=== PATIENT | female | born 2000 | race Caucasian/White ===

== ENCOUNTER 2024-08-30 16:03 | Emergency (ER) | payer MEDICAID, SELFPAY ==
[2024-08-30 16:04] VITALS: BMI 35.2
--- NOTE | 2024-08-30 16:37 | XR_ITS ---
Examination: Complete OB ultrasound greater than 14 weeks Date and time of exam: August 30, 2024 1700 hours INDICATIONS: Mid abdominal and pelvic pain today Findings: Viable intrauterine single fetus with single amniotic sac presentation breech Cardiac motion 150 BPM Placenta anterior grade 1 Umbilical cord insertion seen Amniotic fluid volume adequate spine posterior Cervix 4.6 cm Ovaries obscured by bowel gas. Composite estimated gestational age based on BPD, head circumference, abdominal circumference, femur length is 16 weeks 1 day Estimated weight 151 g. Survey of intracranial anatomy, spinal anatomy, abdominal anatomy, four-chamber heart performed with no abnormalities identified. Impression: Viable intrauterine gestation breech presentation.
[2024-08-30 16:38] VITALS: BP 109/73; PULSE 74; RESP 18; TEMP 36.9; O2SAT 99
[2024-08-30 17:30] LABS: Collection Type, Urine Clean Catch
[2024-08-30 17:30] LABS: Basophils % (Auto) 0 % (0-2.5); Eosinophils % (Auto) 0 % (0-10); Hemoglobin 12.2 g/dL (12.0-16.0); Immature Granulocytes % (Auto) 0 % (0-0); Immature Granulocytes Auto 0.01 Thou/mm3 (0.00-0.00); Lymphocytes # (Auto) 1.6 Thou/mm3 (1.0-4.8); Lymphocytes % (Auto) 24 % (10-50); Mean Corpuscular HGB Conc 35.9 g/dl (31.0-37.0); Mean Corpuscular Hemoglobin 28.7 pg (25.0-35.0); Mean Corpuscular Volume 80 fL (80-100); Monocytes # (Auto) 0.3 Thou/mm3 (0.0-0.8); Monocytes % (Auto) 4 % (0-12); Neutrophils # (Auto) 4.6 Thou/mm3 (1.8-7.7); Neutrophils % (Auto) 71 % (37-80); Nucleated Red Blood Cell % 0 /100 WBC (0); Platelet Count 245 Thou/mm3 (140-440); RDW Standard Deviation 41.2 fL (36.4-46.3); Red Blood Count 4.25 Miln/mm3 (4.00-5.20); White Blood Count 6.5 Thou/mm3 (3.6-11.0)
[2024-08-30 17:46] LABS: Alanine Aminotransferase 23 U/L (10-49); Albumin, Serum 4.1 gm/dL (3.5-5.0); Albumin/Globulin Ratio 1.4 (1.2-2.2); Alkaline Phosphatase 47 U/L (46-116); Anion Gap 8 (7-16); Aspartate Amino Transferase 18 U/L (0-34); BUN/Creatinine Ratio 10 Ratio (12-20); Beta HCG,Quantitative > 1000 mIU/mL (<5.0); Bilirubin,Total 0.2 mg/dL (0.3-1.2); Blood Urea Nitrogen 7 mg/dL (9-23); Calcium 8.6 mg/dL (8.3-10.6); Calcium (Corrected) 8.6 mg/dL (8.5-10.1); Carbon Dioxide 22.9 mMol/L (20.0-31.0); Chloride 107 mMol/L (98-107); Creatinine (Component) 0.7 mg/dL (0.6-1.3); Estimated Creatinine Clearance 135.8 mL/min (>60); Globulin 2.9 gm/dL (2.3-3.5); Glucose 108 mg/dL (74-106); Osmolality,Calculated 274 (275-295); Potassium 3.6 mMol/L (3.4-5.1); Sodium 138 mMol/L (136-145); eGFR > 60 See Note
[2024-08-30 17:56] LABS: Bacteria,Urine Rare; Bilirubin,Urine Negative (Negative); Blood,Urine Negative (Negative); Color,Urine Yellow (Lt Yel-Yel); Glucose, Urine Negative (Negative); Ketones,Urine 1+ (Negative); Leukocyte Esterase,Urine Negative (Negative); Nitrite,Urine Negative (Negative); PH,Urine 6.5 (5.0-7.0); Protein,Urine Trace (Neg - Trace); RBC,Urine 21 /hpf (0-3); Specific Gravity,Urine 1.029 (1.001-1.035); Squamous Epithelial Cell,Urine 1 /hpf (0-5); Urobilinogen,Urine Negative mg/dL (0.0-1.0); WBC,Urine 2 /hpf (0-5)
[2024-08-30 18:00] LABS: Clarity,Urine Hazy (Clear/Hazy)
--- NOTE | 2024-08-30 18:26 | PD.EDABDPN ---
ED Abdominal Pain RME/HPI General Chief Complaint: Shortness of Breath/Dyspnea Stated complaint: SOB, ABD PAIN, 17 WKS Time seen by provider: 08/30/24 16:09 Arrival date/time: 08/30/24 16:03 This is a case of 24 year old female came in with periumbilcal pain and some shortness of breath no fever no chills no cough nor nasal congestion no vaginal bleeding nor spotting no vaginal discharge Patient is 17 weeks with regular OB check up patient verbalized she is stress no chest pain Limitations: no limitations Related Data Previous Rx's ?Medication ?Instructions ?Recorded atenolol 25 mg tablet 25 mg PO QAM #30 tabs 05/06/19 methimazole 5 mg tablet 5 mg PO TID #90 tabs 05/06/19 hydrocodone 7.5 mg-acetaminophen 1 tab PO QID PRN pain #12 tabs 05/20/20 325 mg tablet tamsulosin 0.4 mg capsule (Flomax) 0.4 mg PO QDAY #7 caps 05/20/20 diphenhydramine HCl 50 mg capsule 50 mg PO Q6H PRN allergic reaction 12/05/21 #20 caps famotidine 20 mg tablet (Pepcid) 20 mg PO BID #10 tabs 12/05/21 prednisone 10 mg tablet 30 mg (3 x 10 mg) PO BID #18 tabs 12/05/21 ibuprofen 800 mg tablet 800 mg PO TID PRN pain #30 tabs 12/11/23 Allergies Allergy/AdvReac Type Severity Reaction Status Date / Time No Known Allergies Allergy Verified 08/30/24 16:04 Review of Systems Review of Systems Systems Reviewed: All systems reviewed, normal except as documented Constitutional Constitutional: Reports system reviewed and no additional complaints, except as documented, Reports as per HPI, Denies chills and Denies fever(s) Cardiovascular Cardiovascular: Reports system reviewed and no additional complaints, except as documented, Reports as per HPI, Denies chest pain and Reports dyspnea Respiratory Respiratory: Reports system reviewed and no additional complaints, except as documented, Denies cough and Reports dyspnea Gastrointestinal Gastrointestinal: Reports system reviewed and no additional complaints, except as documented, Reports abdominal pain, Denies nausea and Denies vomiting Genitourinary Genitourinary: Denies abnormal vaginal bleeding, Denies dysuria and Denies hematuria Musculoskeletal Musculoskeletal: Reports system reviewed and no additional complaints, except as documented and Reports as per HPI Neurologic Neurologic: Reports system reviewed and no additional complaints, except as documented and Reports as per HPI Past Medical History Past Medical History NEUROLOGIC: Negative Neurological Disorders CARDIAC: Positive Cardiac Disorders and Hypertension; Negative Congestive Heart Failure RESPIRATORY: Negative Chronic Obstructive Pulmonary Disease (COPD) GASTROINTESTINAL: Negative Gastrointestinal Disorders GENITOURINARY: Negative Genitourinary Disorders or Renal Disease REPRODUCTIVE: Positive Previous Pregnancies MUSCULOSKELETAL: Negative Musculoskeletal Disorders ENDOCRINE: Positive Endocrine Disorders, Hyperthyroidism and Graves' Disease; Negative Diabetes Mellitus Type 1 or Diabetes Mellitus Type 2 HEMATOLOGIC: Negative Blood Disorders PSYCHO/SOCIAL: Positive Depression OTHER HISTORY: Negative Blood Transfusions Family History FAMILY HISTORY: Positive Family Cancer; Negative Family Psychiatric Problems, Family Respiratory Disorders, Family Cardiac Disorders, Family Gastrointestinal Problems, Family Surgery or Family Anesthesia Reaction Surgical History SURGICAL: Negative Section Social History SMOKING STATUS: Former smoker SECOND HAND EXPOSURE: Yes SUBSTANCE USE: does not use ED Exam General Limitations: Present no limitations General appearance: Present alert and in no apparent distress Head Head exam: Present atraumatic, normocephalic and normal inspection Eye Eye exam: Present normal appearance, PERRL and EOMI ENT ENT exam: Present normal exam, normal oropharynx and mucous membranes moist Neck Neck exam: Present normal inspection, full ROM and trachea midline Chest Chest inspection: Present normal inspection and symmetric chest wall rise; Absent tenderness Respiratory Respiratory exam: Present normal lung sounds bilaterally; Absent respiratory distress, wheezes, stridor, accessory muscle use or prolonged expiratory phase Cardiovascular Cardiovascular exam: Present regular rate, normal rhythm and normal heart sounds; Absent systolic murmur or diastolic murmur Abdominal Exam Abdominal exam: Present soft, normal bowel sounds and other (gravid uterus); Absent tenderness, guarding, rebound or rigidity Extremities Exam Extremities exam: Present normal inspection and full ROM Back Exam Back exam: Present normal inspection and full ROM Neurological Exam Neurological exam: Present alert, oriented X3 and CN II-XII intact Psychiatric Psychiatric exam: Present normal affect and normal mood Skin Skin exam: Present warm, dry, intact and normal color Course Quality Measures none Orders Category Date Time Status US OB >= 14 weeks Fetus Stat Exams 08/30/24 16:37 Completed ABO/RH Type Stat Lab 08/30/24 16:50 Results Beta HCG,Quantitative Stat Lab 08/30/24 16:50 Completed CBC Stat Lab 08/30/24 16:50 Completed Comprehensive Metabolic Panel Stat Lab 08/30/24 16:50 Completed UA [Urinalysis] Stat Lab 08/30/24 17:25 Completed Urine Culture Stat Lab 08/30/24 17:25 Received Vital Signs Vital signs: Vital Signs Temperature 98.5 F 08/30/24 16:38 Pulse Rate 74 08/30/24 16:38 Respiratory Rate 18 08/30/24 16:38 Blood Pressure 109/73 08/30/24 16:38 Pulse Oximetry (%) 99 08/30/24 16:38 Oxygen Delivery Method Room Air 08/30/24 16:38 Oxygen saturation 99% WNL on room air Abdominal Pain MDM MDM Narrative MDM Narrative:: This is a case of 24 year old female came in with periumbilcal pain and some shortness of breath no fever no chills no cough nor nasal congestion no vaginal bleeding nor spotting no vaginal discharge Patient is 17 weeks with regular OB check up patient verbalized she is stress no chest pain Physicial exam showed normal vital signs patient is not tacycardic not tacypneic blood pressure stable afebrile not hypoxic Physical exam patient is awake alert oriented not in distress nontoxic looking HEENT exam is normal lung sounds is clear no crackles no rales no retraction no stridor heart normal rate regular rhythm no murmur patient abdominal exam is benign nonsurgical no tenderness no guarding no rebound no rigidity no CVA tenderness no bladder distention or tenderness patient is slightly stress no suicidal no homicidel ideation test showed No leukocytosis no anemia kidney and liver function is normal no electrolyte imbalance urinalysis is normal ultrasound showed normal 16 weeks with a heartbeat 150 beta hCG is >1000 at this point I discussed with the patient that she needs to follow-up with her primary care physician and OB for reevaluation and for any vaginal bleeding or vaginal discharge or vaginal spotting she needs to return in the emergency room immediately or call 911 deep breathing exercises for stress and shortness of breath of breath was advised at this point x-ray was note done patient is lung sound is clear no signs and symptoms of cardiopulmonary pathology patient was disharged with comforatble conditionwith stable condition and pain fee. Walking stable Patient verbalized no further complain with the proposed management plan including the need to follow up with his/her primary care physician and and any specialist fif applicable. Discussed patient for any urgent condition or worsening sx He she needed to go to Emergency room of call 911 Patient is acknowledge the responsibility to follow up as instructed and to monitor his/her symptoms For any persistnce of the symtoms for more than 3-5 days retrun precaution advised Discussed the result of thetest and was given printed dsicahrge instruction Patient data External records reviewed:: [facility] previous records Clinical information provided by:: patient Social determinants that could affect healthcare access:: none Patient has the following chronic illnesses:: none How is presenting disease/condition affected by chronic disease/condition?: no chronic disease Evaluation data The following diagnostics were reviewed and interpreted by me:: lab results and radiology exam(s) Lab and/or radiology exams considered but not ordered:: Reviewed Interpretation Summary: Normal Medications / Prescriptions Medications or Prescriptions considered but not ordered:: None Medication administrations:: None Consultations Consultation(s) initiated? (list below): No Diagnosis Differential diagnosis abdominal pain: abdominal pain and other (threatened uti gallstone) Most likely diagnosis given after review of the tests above:: abdominal pain in Admission Indicated Admission indicated?: not indicated Explain why admission is indicated or not indicated:: not indicated Admission Request Was there a request for admission?: No Admission Attestation Admission request attestation: not indicated Disposition Plan Disposition Plan: Discharge Discharge Attestation Discharge Attestation: The patient and all family members were given an opportunity to ask questions and understood the discharge instructions. Discharge instructions specifically effects, indications for sooner follow up or return to the emergency department, and the expected course of current diagnosis. Patient condition: Stable Discharge Plan Plan Patient Disposition: HOME (Self Care) Patient condition on transfer: Stable Prescriptions/Referrals Prescriptions/Med Rec: No Action tamsulosin [Flomax] 0.4 mg capsule 0.4 mg PO QDAY Qty: 7 0RF hydrocodone-acetaminophen 7.5-325 mg tablet 1 tab PO QID MDD 4 tabs PRN (Reason: pain) Qty: 12 0RF prednisone 10 mg tablet 30 mg PO BID Qty: 18 0RF Rx Instructions: administer with food or milk diphenhydramine HCl 50 mg capsule 50 mg PO Q6H PRN (Reason: allergic reaction) Qty: 20 0RF famotidine [Pepcid] 20 mg tablet 20 mg PO BID Qty: 10 0RF atenolol 25 mg Tablet 25 mg PO QAM Qty: 30 0RF methimazole 5 mg Tablet 5 mg PO TID Qty: 90 0RF ibuprofen 800 mg tablet 800 mg PO TID PRN (Reason: pain) Qty: 30 0RF Referrals: Robert Leo MD [Primary Care Provider] - In 1 week Problem List Clinical Impression: Abdominal pain during , Dyspnea Patient/Caregiver Discharge Instructions Education Materials: Abdominal Pain, ED Shortness of Breath (Dyspnea) Additional Instructions: Follow-up with your primary care physician in 2 days and ffup with your obgyn for check up for and vaginal bleeding vaginal spotting or discharge fever nausea vomiting return to er imemdiately or call 911 increase water intake and continue youe prental check deep breathing exercise for stress advsied Print Language: Jordanian Stand Alone Forms: [employer] Award Info., Patient Portal Info Letter PA/SANDING MACHINE OPERATOR OR TENDER Supervising Physician PA/SANDING MACHINE OPERATOR OR TENDER Supervising Physician: dr naranjo
--- NOTE | 2024-08-30 19:17 | PC.NURSE ---
NO ANSWER AT ER LOBBY OR OUTSIDE ER.
--- NOTE | 2024-08-30 19:23 | PC.NURSE ---
NO ANSWER AT ER LOBBY OR OUTSIDE ER.
--- NOTE | 2024-08-30 20:03 | PC.NURSE ---
NO ANSWER AT ER LOBBY OR OUTSIDE ER TO RE EVALUATED.
== END 2024-08-30 20:06 | disposition home or self-care (01) ==
PROVIDERS: Nurse Practitioner Primary Care; Emergency Provider Emergency Medicine; PCP Family Medicine
DX: O26.892 Other specified pregnancy related conditions, second trimester (principal); Z3A.17 17 weeks gestation of pregnancy; R10.33 Periumbilical pain; R06.02 Shortness of breath
CPT/HCPCS: 36415; 76805; 80053; 81001; 84702; 85025; 86900; 86901; 87077; 87086; 87186; 99284

== ENCOUNTER 2024-10-14 08:56 | Observation (INO) | payer MEDICAID, SELFPAY ==
[2024-10-14] VITALS (34 sets, daily range): BP systolic 98–107; BP diastolic 61–75; PULSE 60–104; RESP 18–97; TEMP 36.4; O2SAT 93–100; BMI 34.9
--- NOTE | 2024-10-14 09:17 | XR_ITS ---
Examination: Retroperitoneal ultrasound, complete Technique: Multiple high resolution grayscale images of the retroperitoneum obtained, including kidneys and bladder. Exam date and time:October 14, 2024, 0931 hrs. Indications: Right-sided flank pain beginning 3 days ago Findings: Right kidney 10.7 cm renal cortex 1.9 cm Left kidney 11.3 cm renal cortex 1.8 cm No hydronephrosis Contracted urinary bladder Impression: No renal calculi or hydronephrosis
[2024-10-14] MEDS: DIPHENOXYLATE/ATROP SULF 1 TAB PO (10:28)
[2024-10-14] MEDS: ACETAMINOPHEN 500 MG TABLET 1000 MG PO (10:28)
[2024-10-14 10:56] LABS: Collection Type, Urine Clean Catch; RBC,Urine 0 /hpf (0-3); WBC,Urine 0 /hpf (0-5)
[2024-10-14 11:16] LABS: Bacteria,Urine 1+; Bilirubin,Urine Negative (Negative); Blood,Urine Negative (Negative); Clarity,Urine Clear (Clear/Hazy); Color,Urine Lt-Yellow (Lt Yel-Yel); Glucose, Urine Negative (Negative); Ketones,Urine Trace (Negative); Leukocyte Esterase,Urine Negative (Negative); Nitrite,Urine Negative (Negative); PH,Urine 7.0 (5.0-7.0); Protein,Urine Negative (Neg - Trace); Specific Gravity,Urine 1.008 (1.001-1.035); Squamous Epithelial Cell,Urine 9 /hpf (0-5); Urobilinogen,Urine Negative mg/dL (0.0-1.0)
[2024-10-14 11:24] LABS: Fetal Fibronectin Negative (Negative)
[2024-10-14 11:25] LABS: FFN Specimen Descripton Clr Colrless Aqueous
== END 2024-10-14 11:55 | disposition home or self-care (01) ==
PROVIDERS: Admitting Provider Specialist; Visit Provider Specialist
DX: O26.892 Other specified pregnancy related conditions, second trimester (principal); Z3A.23 23 weeks gestation of pregnancy; R10.9 Unspecified abdominal pain
CPT/HCPCS: 59899; 76770; 81001; 82731; A9270

== ENCOUNTER 2024-12-28 08:38 | Observation (INO) | payer MEDICAID, SELFPAY ==
[2024-12-28 08:40] VITALS: BP 106/72; PULSE 84; RESP 100; RESP 18; TEMP 36.7; BMI 36.7
[2024-12-28 08:47] VITALS: BP 106/72; PULSE 101; PULSE 94; O2SAT 99
[2024-12-28 08:52] VITALS: PULSE 108; O2SAT 99
[2024-12-28 08:57] VITALS: PULSE 78; O2SAT 99
[2024-12-28 09:02] VITALS: PULSE 93; O2SAT 97
== END 2024-12-28 09:10 | disposition home or self-care (01) ==
PROVIDERS: Admitting Provider Specialist; Visit Provider Specialist
DX: O26.893 Other specified pregnancy related conditions, third trimester (principal); Z3A.34 34 weeks gestation of pregnancy; R42 Dizziness and giddiness
CPT/HCPCS: 59025; 59899

== ENCOUNTER 2025-01-22 19:53 | Observation (INO) | payer MEDICAID, SELFPAY ==
[2025-01-22] VITALS (9 sets, daily range): BP systolic 105–131; BP diastolic 62–91; PULSE 93–112; RESP 18–98; TEMP 36.9; O2SAT 92–98; BMI 37.3
== END 2025-01-22 20:47 | disposition home or self-care (01) ==
PROVIDERS: Admitting Provider Specialist; Visit Provider Specialist
DX: O47.1 False labor at or after 37 completed weeks of gestation (principal); O46.93 Antepartum hemorrhage, unspecified, third trimester; Z3A.38 38 weeks gestation of pregnancy
CPT/HCPCS: 59025; 59899

== ENCOUNTER 2025-01-28 08:58 | Observation (INO) | payer MEDICAID, SELFPAY ==
[2025-01-28] VITALS (15 sets, daily range): BP systolic 110–112; BP diastolic 73–76; PULSE 69–114; RESP 16–96; TEMP 37; O2SAT 97–100; BMI 37.7
== END 2025-01-28 10:15 | disposition home or self-care (01) ==
PROVIDERS: Admitting Provider Specialist; Visit Provider Specialist
DX: O47.1 False labor at or after 37 completed weeks of gestation (principal); Z3A.38 38 weeks gestation of pregnancy
CPT/HCPCS: 59025; 59899

== ENCOUNTER 2025-01-30 03:33 | Observation (INO) | payer MEDICAID, SELFPAY ==
--- NOTE | 2025-01-28 07:33 | PC.NURSE ---
PT CALLED ASKING FOR BED AVAILABILITY FOR IOL, INFORMED OF NO BEDS AT THIS TIME, WILL CALL ONCE BED BECOMES AVAILABLE, EDUCATED ON KICK COUNT AND LABOR PRECAUTIONS, PT VERBALIZED UNDERSTANDING
[2025-01-30] VITALS (29 sets, daily range): BP systolic 97–126; BP diastolic 52–82; PULSE 65–111; RESP 16–19; TEMP 36.4–37.1; O2SAT 96–100; BMI 36.9
[2025-01-30 04:30] LABS: Basophils # (Auto) 0.0 Thou/mm3 (0.0-0.2); Basophils % (Auto) 0 % (0-2.5); Eosinophils # (Auto) 0.0 Thou/mm3 (0.0-0.5); Eosinophils % (Auto) 0 % (0-10); Hematocrit 34.0 % (36.0-46.0); Hemoglobin 11.6 g/dL (12.0-16.0); Immature Granulocytes Auto 0.02 Thou/mm3 (0.00-0.00); Lymphocytes # (Auto) 1.9 Thou/mm3 (1.0-4.8); Lymphocytes % (Auto) 31 % (10-50); Mean Corpuscular HGB Conc 34.1 g/dl (31.0-37.0); Mean Corpuscular Hemoglobin 28.6 pg (25.0-35.0); Mean Corpuscular Volume 84 fL (80-100); Monocytes # (Auto) 0.3 Thou/mm3 (0.0-0.8); Monocytes % (Auto) 6 % (0-12); Neutrophils # (Auto) 3.9 Thou/mm3 (1.8-7.7); Neutrophils % (Auto) 63 % (37-80); Nucleated Red Blood Cell # 0.00 Thou/mm3 (0.00-0.00); Nucleated Red Blood Cell % 0 /100 WBC (0); Platelet Count 243 Thou/mm3 (140-440); RDW Standard Deviation 42.6 fL (36.4-46.3); Red Blood Count 4.06 Miln/mm3 (4.00-5.20); White Blood Count 6.1 Thou/mm3 (3.6-11.0)
--- NOTE | 2025-01-30 05:05 | XR_ITS ---
EXAMINATION: age Limited TECHNIQUE: Limited transabdominal sonographic images pelvis Date and time: January 30, 2025, 0531 hours INDICATIONS: Labor induction today, unknown presentation FINDINGS: Viable intrauterine gestation in vertex presentation spine maternal right Cardiac motion 125 bpm IMPRESSION: Viable intrauterine gestation in vertex presentation
[2025-01-30] MEDS: RINGERS LACTATED 1000 ML 1,000 ML 100 ML IV (05:41)
[2025-01-30] MEDS: LEVOTHYROXINE SODIUM 88 MCG TABLET PO (06:25)
[2025-01-30] MEDS: LEVOTHYROXINE SODIUM 100 MCG TABLET 200 MCG PO (06:25)
[2025-01-30 07:03] LABS: Syphilis Reactive (Nonreactive)
--- NOTE | 2025-01-30 07:03 | PD.LDHP ---
Documentation for date of: 01/30/25 OB Labor/Induct. HPI History of Present Illness : 2 Term pregnancies: 1 pregnancies: 0 Living children: 0 History of Abortions: Spontaneous and Elective: 0 History of sections: No History of : No Date of last menstrual period: 05/01/24 KIRSTEN: 02/05/25 Gestational age based on last menstrual period: 39 History of present illness: H and P dictated on STAT line # 9 in Nuance: [id number]. Labs Labs: Positive: Rubella Titre, Negative: RPR, Hepatitis B, HIV, Chlamydia, Gonorrhea and Group Beta Strep and Unknown: Herpes Type 1, Herpes Type 2 and Covid-19 Past Medical History Surgical History SURGICAL: Negative Section Meds Home Medications and Allergies Home Medications ?Medication ?Instructions ?Recorded ?Confirmed ?Type levothyroxine 200 mcg tablet 200 mcg PO QDAY 10/14/24 01/30/25 History aspirin 81 mg tablet,delayed 81 mg PO DAILY 12/28/24 01/30/25 History release levothyroxine 88 mcg tablet 88 mcg PO DAILY 12/28/24 01/30/25 History vits no.130-ferrous fum 1 tab PO DAILY 12/28/24 01/30/25 History 27 mg iron-folic acid 800 mcg tablet ( Vitamin) ferrous sulfate 325 mg (65 mg 325 mg PO QDAY 01/28/25 01/30/25 History iron) tablet Allergies Allergy/AdvReac Type Severity Reaction Status Date / Time No Known Allergies Allergy Verified 01/30/25 04:09 OB Exam Physical Exam Vital signs: Temp Pulse Resp BP 97.5 F 78 19 119/68 01/30/25 03:38 01/30/25 06:43 01/30/25 03:38 01/30/25 06:43 OB Results Labs 01/30/25 04:02 Labs: Short CBC 01/30/25 Range/Units 04:02 WBC 6.1 (3.6-11.0) Thou/mm3 Hgb 11.6 L (12.0-16.0) g/dL Hct 34.0 L (36.0-46.0) % Plt Count 243 (140-440) Thou/mm3
[2025-01-30 07:04] LABS: MHATP/TP-PA* See Sep Rpt
--- NOTE | 2025-01-30 07:30 | PD.LDPN ---
Documentation for date of: 01/30/25 OB Labor Progress Note Pain Control Comments: None needed Pelvic Exam Dilation (cm): 1 Effacement (%): Thick station: -4 Amniotic membrane status: Intact Comments: Per RN exam Cephalic by ultrasound Contractions Monitor mode: External Contraction frequency: Rare Contraction intensity: Mild Status status: Category l Assessment and Plan Comments: Cervidil cervical ripening History of Present Illness HPI H and P dictated on STAT line # 9 in Nuance: [id number].
--- NOTE | 2025-01-30 08:02 | ESHP_ITS ---
RE: SEPIDEH SAXENA : 2000 DATE OF ADMISSION: 01/29/2025 This is a 24-year-old 2, para 1-0-0-1 with due date of 02/05 with intrauterine at 39 weeks and 6 days on 01/29, who presents for induction of labor for 2-vessel umbilical cord and uncontrolled hypothyroidism. The patient has had serial ultrasounds with maternal medicine. The most recent ultrasound on 01/02 showed overall growth at the 20th percentile. Her was complicated by the threat of labor, for which she stopped working on 10/11/2024. Around 10/14, she had flank pain which resulted in hospital evaluation where a renal ultrasound was negative as well as a UA and a fibronectin. The patient has been on levothyroxine throughout her pregnancies and in an attempt to control her hypothyroidism, she has had subsequent increased doses due to uncontrolled hypothyroidism. Her current dose is 288 mcg of levothyroxine daily. The patient has a history of treatment for syphilis in 2021. Her RPR on 08/30/2024 was 121 consistent with her serofast state. However, her repeat RPR on 11/17/2024 was nonreactive. Maternal medicine ultrasound confirmed a single umbilical artery. The patient has been undergoing antepartum testing which has been reassuring. ALLERGIES: NO KNOWN DRUG ALLERGIES. MEDICATIONS: 1. multivitamin 1 p.o. daily. 2. Ferrous sulfate 325 mg 1 p.o. b.i.d. 3. Levothyroxine 288 mcg 1 p.o. daily. 4. Aspirin 81 mg 1 p.o. daily. SOCIAL HISTORY: She is single. She denies any alcohol, drug use or smoking. FAMILY HISTORY: Breast cancer and colon cancer. OBSTETRIC HISTORY: In 02/2019, 39-week normal vaginal delivery, 7-pound male, complicated by thyroid disorder. PAST SURGICAL HISTORY: Denies. PAST MEDICAL HISTORY: Syphilis treated 2021, hypothyroidism, iron deficiency anemia. REVIEW OF SYSTEMS: She denies any chest pain, palpitations, cough, fever, shortness of breath or lower extremity pain. She denies any headache, change in vision or right upper quadrant pain. PHYSICAL EXAMINATION: VITAL SIGNS: Blood pressure 130/79, heart rate 88, respirations 18, temperature is 98.6. HEENT: Oropharynx and sclerae are clear. LUNGS: Clear to auscultation bilaterally. HEART: Regular rate and rhythm. ABDOMEN: No scars noted. PELVIC: See RN notes. EXTREMITIES: Nontender. SKIN: No gross rashes or lesions. NEUROLOGIC: No focal deficit. ASSESSMENT AND PLAN: Intrauterine at 39 weeks and 0 days, single umbilical artery, hypothyroidism uncontrolled. PLAN: Induction of labor. Anticipate spontaneous vaginal delivery. Informed consent was obtained. The patient was made aware of the risks, complications, alternatives and benefits of operative vaginal delivery and delivery and agrees with these modes of delivery if indicated. DT: 08:21:38 TT: 08:44:00 Ref: [id number] - TID: [id number]
--- NOTE | 2025-01-30 10:15 | CHAP ---
Patient was visited by the Spiritual Care Volunteer who prayed for her. (Volunteer was on he floor from c 9:30-10:15)
[2025-01-30 10:20] LABS: Amphetamine/Metham Scrn,Ur OB Negative (Negative); Benzoylecgonine Screen, Ur OB Negative (Negative); Opiate Screen,Urine OB Negative (Negative); THC Screen,Urine OB Negative (Negative)
--- NOTE | 2025-01-31 03:42 | PD.LDPN ---
Documentation for date of: 01/31/25 OB Labor Progress Note Pelvic Exam Dilation (cm): 1.5 Effacement (%): thick station: -4 Amniotic membrane status: Intact Contractions Monitor mode: External Contraction frequency: 2-4 Contraction intensity: Mild Status status: Category l Assessment and Plan Comments: Cervical ripening ongoing History of Present Illness HPI H and P dictated on STAT line # 9 in Nuance: [id number].
[2025-01-31] MEDS: LEVOTHYROXINE SODIUM 100 MCG TABLET 200 MCG PO (05:57)
[2025-01-31] MEDS: LEVOTHYROXINE SODIUM 88 MCG TABLET PO (05:57)
[2025-01-31 07:05] VITALS: RESP 16; TEMP 36.4
[2025-01-31 07:07] VITALS: BP 110/74; PULSE 62
[2025-01-31 10:33] VITALS: BP 110/75; PULSE 80
[2025-01-31 12:04] VITALS: BP 118/73; PULSE 74
[2025-01-31 16:21] VITALS: BP 109/64; PULSE 70
[2025-01-31 19:17] VITALS: BP 123/73; PULSE 73; TEMP 36.6
[2025-02-01 00:05] VITALS: BP 108/59; PULSE 69; TEMP 36.6
[2025-02-01 04:38] VITALS: BP 95/51; PULSE 67; TEMP 36.7
[2025-02-01] MEDS: LEVOTHYROXINE SODIUM 100 MCG TABLET 200 MCG PO (06:17)
[2025-02-01] MEDS: LEVOTHYROXINE SODIUM 88 MCG TABLET PO (06:18)
--- NOTE | 2025-02-01 07:20 | PD.LDDS ---
DS: Providers Provider Date of admission: 01/30/25 03:33 Primary care physician: Physician No Primary/Family Admitting Provider: Seferino Lopez MD Attending Provider on Admission: Seferino Lopez MD Attending Provider on DC: Seferino Lopez MD Discharging Provider: Seferino Lopez MD DS: Diagnosis Discharge Diagnosis (1) Failed induction of labor, antepartum: Status: Acute (2) Hypothyroid in , antepartum: Status: Acute (3) Single umbilical artery affecting management of mother in bill , antepartum: Status: Acute Problem List Completed Was Problem List Reviewed/Reconciled?: Yes Summary/Hosp Course Brief History: H and P dictated on STAT line # 9 in Nuance: [id number]. Time Spent with Patient Time attestation: Total time spent providing and/or coordinating discharge services: Exam Vital Signs Temp Pulse Resp BP Pulse Ox O2 Del Method 98.1 F 67 16 95/51 L 98 Room Air 02/01/25 04:38 02/01/25 04:38 01/31/25 07:05 02/01/25 04:38 01/30/25 08:35 01/30/25 16:00 Additional findings Additional findings: see Progress note 02/01/2025 Failed induction. Discharge Plan Plan Patient Disposition: HOME (Self Care) Patient condition on transfer: Stable Prescriptions/Referrals Prescriptions/Med Rec: No Action levothyroxine 200 mcg tablet 200 mcg PO QDAY Patient Comments: TAKE ONE TABLET BY MOUTH EVERY DAY loperamide-simethicone 2-125 mg tablet 1 tab PO Q2H PRN (Reason: loose stool) Qty: 6 0RF Rx Instructions: do not exceed 4 tabs in 24 hrs levothyroxine 88 mcg tablet 88 mcg PO DAILY Patient Comments: TAKE ONE TABLET BY MOUTH EVERY MORNING BEFORE MEALS WITH 200 mcg aspirin 81 mg tablet,delayed release (DR/EC) 81 mg PO DAILY Patient Comments: TAKE ONE TABLET BY MOUTH EVERY DAY FOR THE HEART Vitamin 27 mg iron- 800 mcg tablet 1 tab PO DAILY Patient Comments: TAKE ONE TABLET BY MOUTH EVERY DAY VITAMIN ferrous sulfate 325 mg (65 mg iron) tablet 325 mg PO QDAY Patient Comments: Take 1 tablet by mouth twice a day as directed Referrals: No Primary/Family,Physician [Primary Care Provider] Patient/Caregiver Discharge Instructions Education Materials: Kick Counts, Labor Induction, Antepartum Discharge Print Language: Ivorian Activity Restrictions/Additional Instructions: Patient scheduled for Induction of Labor on 02/12/25. Stand Alone Forms: [employer] Award Info., Patient Portal Info Letter Discharge Order Discharge Orders: Discharge (Routine); Ordered 02/01/25 Ordered By: Seferino Lopez Planned Discharge Date 02/01/25
--- NOTE | 2025-02-01 07:36 | ESPR_ITS ---
RE: SEPIDEH SAXENA : 2000 DATE OF SERVICE: 02/01/2025 Patient has received 2 rounds of Cervidil and a round of Cytotec which have failed to improve her cervix to anything more than 2.5 cm dilated, 50% effaced at minus 3. I discussed with the patient her options as her external monitoring has been reassuring, her vital signs have been stable and the indication for induction was 39 weeks with single umbilical artery and the patient elects to decline further trial of induction and follow up at 40-41 weeks for induction of labor. The patient was offered continued induction with either Pitocin or further cervical ripening or proceeding with delivery. She declined those options and elects to go home. I instructed her on daily kick counts and to follow up at 40-41 weeks for induction of labor. All questions answered. DT: 07:20:24 TT: 07:34:00 Ref: [id number] - TID: [id number] MTDD
== END 2025-02-01 07:17 | disposition home or self-care (01) ==
PROVIDERS: Admitting Provider Specialist; Visit Provider Specialist
DX: O61.0 Failed medical induction of labor (principal); O99.284 Endocrine, nutritional and metabolic diseases complicating childbirth; E03.9 Hypothyroidism, unspecified; Z3A.39 39 weeks gestation of pregnancy; Z79.890 Hormone replacement therapy; Z79.82 Long term (current) use of aspirin
CPT/HCPCS: 36415; 59899; 76815; 80307; 85025; 86780; 86850; 86900; 86901; 96374; G0378; J2470; J7120; A9270

== ENCOUNTER 2025-02-07 10:10 | Observation (INO) | payer MEDICAID, SELFPAY ==
[2025-02-07 10:15] VITALS: BP 118/67; PULSE 114; RESP 18; TEMP 36.9; BMI 37.2
[2025-02-07 10:30] VITALS: BP 118/67; PULSE 114
[2025-02-07 12:11] VITALS: BP 120/76; PULSE 80
--- NOTE | 2025-02-12 11:17 | PC.NURSE ---
LATE ENTRY: PT CALLED EARLIER ASKING FOR BED AVAILABILITY FOR IOL, INFORMED OF NO BEDS AVAILABLE AT THIS TIME, WILL CALL ONCE BED BECOMES AVAILABLE, EDUCATED ON KICK COUNT AND LABOR PRECAUTIONS, PT VERBALIZED UNDERSTANDING
== END 2025-02-07 12:30 | disposition home or self-care (01) ==
PROVIDERS: Admitting Provider Specialist; Visit Provider Specialist
DX: Z34.83 Encounter for supervision of other normal pregnancy, third trimester (principal); Z3A.40 40 weeks gestation of pregnancy
CPT/HCPCS: 59025; 59899

== ENCOUNTER 2025-02-13 14:10 | Outpatient (CLI) | payer MEDICAID, SELFPAY ==
--- NOTE | 2025-02-13 14:16 | XR_ITS ---
Examination: Biophysical profile, ultrasound Date and time of exam: 02/13/2025 at 2:45 p.m. COMPARISON: Ultrasound 01/30/2025 Technique: Multiple transabdominal sonographic images of the pelvis abdomen obtained. Attention is directed to the breathing movement, gross body movement, amniotic fluid volume and tone. Findings: Single live IUP in cephalic position. Total biophysical profile is 8 of 8. breathing movement is 2. Gross body movement is 2. tone is 2. Qualitative amniotic fluid volume is 2 AYLIN: 11.2 cm. FHR: 127 bpm. Impression: Biophysical profile is 8 of 8.
[2025-02-13 14:19] VITALS: BP 116/63; PULSE 109
[2025-02-13 14:23] VITALS: BP 116/63; PULSE 109; RESP 17; RESP 97; TEMP 36.7; BMI 37.4
== END 2025-02-13 16:05 | disposition home or self-care (01) ==
LOC: S4S1 14:12 → S4SX 14:12
PROVIDERS: PCP Family Medicine; Referring Provider Specialist; Visit Provider Specialist
DX: Z34.83 Encounter for supervision of other normal pregnancy, third trimester (principal); Z36.9 Encounter for antenatal screening, unspecified; Z3A.41 41 weeks gestation of pregnancy
CPT/HCPCS: 59025; 76819

== ENCOUNTER 2025-02-14 07:37 | Inpatient (IN) | payer MEDICAID, SELFPAY ==
[2025-02-14] VITALS (100 sets, daily range): BP systolic 104–162; BP diastolic 55–101; PULSE 63–115; RESP 17; TEMP 36.8; O2SAT 83–100; BMI 37.4
--- NOTE | 2025-02-14 08:32 | ESHP_ITS ---
RE: SEPIDEH SAXENA : 2000 DATE OF ADMISSION: 02/14/2025 HISTORY OF PRESENT ILLNESS: This is a 24-year-old 2, para 1-0-0-1 with due date of 02/05/2025 with intrauterine at 41 weeks 2 days on 02/14/2025, who presents for induction of labor for postdates. The patient's care was complicated by a single umbilical artery and uncontrolled hypothyroidism. She has been followed by maternal medicine throughout her with normal serial ultrasound showing adequate interval growth and normal anatomy. The overall growth on her most recent ultrasound 01/02/2025 was at the 20th percentile. The patient has been on levothyroxine throughout her with serial increases due to uncontrolled hypothyroidism. The patient has a history of treatment for syphilis in 2021. Her RPR on 08/30/2024 was 1 to 1 consistent with her serofast state. A repeat RPR on 11/17/2024 was non-reactive. The patient has been undergoing antepartum testing, which has been reassuring. She was brought in for induction of labor on 01/29/2025, but the induction failed and she was discharged home. ALLERGIES: NO KNOWN DRUG ALLERGIES. MEDICATIONS: 1. multivitamin 1 p.o. daily. 2. Ferrous sulfate 325 mg 1 p.o. b.i.d. 3. Levothyroxine 288 mcg 1 p.o. daily. 4. Aspirin 81 mg 1 p.o. daily. SOCIAL HISTORY: She is single. She denies any alcohol, drug use, or smoking. FAMILY HISTORY: Breast cancer and colon cancer. OBSTETRIC HISTORY: In 2019, 39-week normal vaginal delivery, 7-pound male, complicated by hypothyroidism. PAST SURGICAL HISTORY: Denies. PAST MEDICAL HISTORY: Syphilis treated 2021, hypothyroidism, iron deficiency anemia. REVIEW OF SYSTEMS: She denies any chest pain, palpitations, cough, fever, flank pain, shortness of breath, or lower extremity pain. She denies any headache, change of vision, or right upper quadrant pain. PHYSICAL EXAMINATION: VITAL SIGNS: Blood pressure 130/79, heart rate 88, respirations 18. Temperature is 98.6. HEENT: Oropharynx and sclerae clear. LUNGS: Clear to auscultation bilaterally. HEART: Regular rate and rhythm. ABDOMEN: Gravid, term size, consistent with estimated weight 8 pounds. PELVIC: See RN notes. EXTREMITIES: Nontender. SKIN: No gross rashes or lesions. NEUROLOGICAL: No focal deficit. ASSESSMENT: Intrauterine at 41 weeks 2 days , single umbilical artery, hypothyroidism. PLAN: Induction of labor. Anticipate spontaneous vaginal delivery. Informed consent was obtained. The patient made aware of the risks, complications, alternatives, and benefits of operative vaginal delivery and delivery and agrees with these modes of delivery if indicated. DT: 10:30:35 TT: 11:36:00 Ref: [id number] - TID: [id number] MTDD
--- NOTE | 2025-02-14 08:32 | PD.LDHP ---
Documentation for date of: 02/14/25 OB Labor/Induct. HPI History of Present Illness Comments: [address] [address] History and Physical Report Author: Seferino Lopez DO RE: SEPIDEH SAXENA : 2000 DATE OF ADMISSION: 02/14/2025 This is a 24-year-old 2, para 1-0-0-1 with due date of 02/05 with intrauterine at 41 weeks and 2 days on 02/14, who presents for 2nd trial of induction of labor for 2-vessel umbilical cord and uncontrolled hypothyroidism. The patient has had serial ultrasounds with maternal medicine. The most recent ultrasound on 01/02 showed overall growth at the 20th percentile. Her was complicated by the threat of labor, for which she stopped working on 10/11/2024. Around 10/14, she had flank pain which resulted in hospital evaluation where a renal ultrasound was negative as well as a UA and a fibronectin. The patient has been on levothyroxine throughout her pregnancies and in an attempt to control her hypothyroidism, she has had subsequent increased doses due to uncontrolled hypothyroidism. Her current dose is 288 mcg of levothyroxine daily. The patient has a history of treatment for syphilis in 2021. Her RPR on 08/30/2024 was 121 consistent with her serofast state. However, her repeat RPR on 11/17/2024 was nonreactive. Maternal medicine ultrasound confirmed a single umbilical artery. The patient has been undergoing antepartum testing which has been reassuring. ALLERGIES: NO KNOWN DRUG ALLERGIES. MEDICATIONS: 1. multivitamin 1 p.o. daily. 2. Ferrous sulfate 325 mg 1 p.o. b.i.d. 3. Levothyroxine 288 mcg 1 p.o. daily. 4. Aspirin 81 mg 1 p.o. daily. SOCIAL HISTORY: She is single. She denies any alcohol, drug use or smoking. FAMILY HISTORY: Breast cancer and colon cancer. OBSTETRIC HISTORY: In 02/2019, 39-week normal vaginal delivery, 7-pound male, complicated by thyroid disorder. PAST SURGICAL HISTORY: Denies. PAST MEDICAL HISTORY: Syphilis treated 2021, hypothyroidism, iron deficiency anemia. REVIEW OF SYSTEMS: She denies any chest pain, palpitations, cough, fever, shortness of breath or lower extremity pain. She denies any headache, change in vision or right upper quadrant pain. PHYSICAL EXAMINATION: VITAL SIGNS: Blood pressure 130/79, heart rate 88, respirations 18, temperature is 98.6. HEENT: Oropharynx and sclerae are clear. LUNGS: Clear to auscultation bilaterally. HEART: Regular rate and rhythm. ABDOMEN:EFW 8 lbs. No scars noted. PELVIC: See RN notes. EXTREMITIES: Nontender. SKIN: No gross rashes or lesions. NEUROLOGIC: No focal deficit. ASSESSMENT AND PLAN: Intrauterine at 41 weeks and 2 days, single umbilical artery, hypothyroidism uncontrolled. PLAN: Induction of labor. Anticipate spontaneous vaginal delivery. Informed consent was obtained. The patient was made aware of the risks, complications, alternatives and benefits of operative vaginal delivery and delivery and agrees with these modes of delivery if indicated. Meds Home Medications and Allergies Home Medications ?Medication ?Instructions ?Recorded ?Confirmed ?Type levothyroxine 200 mcg tablet 200 mcg PO QDAY 10/14/24 01/30/25 History aspirin 81 mg tablet,delayed 81 mg PO DAILY 12/28/24 01/30/25 History release levothyroxine 88 mcg tablet 88 mcg PO DAILY 12/28/24 01/30/25 History vits no.130-ferrous fum 1 tab PO DAILY 12/28/24 01/30/25 History 27 mg iron-folic acid 800 mcg tablet ( Vitamin) ferrous sulfate 325 mg (65 mg 325 mg PO QDAY 01/28/25 01/30/25 History iron) tablet Allergies Allergy/AdvReac Type Severity Reaction Status Date / Time No Known Allergies Allergy Verified 01/30/25 04:09 OB Exam Physical Exam Vital signs: Pulse BP 111 H 119/79 02/14/25 08:01 02/14/25 08:01
[2025-02-14] MEDS: RINGERS LACTATED 1000 ML 1,000 ML 100 ML IV ×2 (08:45→18:00)
[2025-02-14 09:13] LABS: Basophils # (Auto) 0.0 Thou/mm3 (0.0-0.2); Basophils % (Auto) 0 % (0-2.5); Eosinophils # (Auto) 0.0 Thou/mm3 (0.0-0.5); Eosinophils % (Auto) 0 % (0-10); Hematocrit 33.1 % (36.0-46.0); Hemoglobin 11.5 g/dL (12.0-16.0); Immature Granulocytes Auto 0.03 Thou/mm3 (0.00-0.00); Lymphocytes # (Auto) 1.6 Thou/mm3 (1.0-4.8); Lymphocytes % (Auto) 22 % (10-50); Mean Corpuscular HGB Conc 34.7 g/dl (31.0-37.0); Mean Corpuscular Hemoglobin 28.5 pg (25.0-35.0); Mean Corpuscular Volume 82 fL (80-100); Monocytes # (Auto) 0.5 Thou/mm3 (0.0-0.8); Monocytes % (Auto) 6 % (0-12); Neutrophils # (Auto) 5.3 Thou/mm3 (1.8-7.7); Neutrophils % (Auto) 72 % (37-80); Nucleated Red Blood Cell # 0.00 Thou/mm3 (0.00-0.00); Nucleated Red Blood Cell % 0 /100 WBC (0); Platelet Count 229 Thou/mm3 (140-440); RDW Standard Deviation 40.2 fL (36.4-46.3); Red Blood Count 4.03 Miln/mm3 (4.00-5.20); White Blood Count 7.4 Thou/mm3 (3.6-11.0)
[2025-02-14 09:55] LABS: Syphilis Reactive (Nonreactive)
[2025-02-14 09:56] LABS: MHATP/TP-PA* See Sep Rpt
[2025-02-14] MEDS: OXYTOCIN in NS 20 units 20 UNIT/1,000 ML BAG 125 UNIT IV (21:58)
[2025-02-14] MEDS: BENZO/LANO/ALOE (Dermoplast) 60 GM CAN 1 SPRAY TOP (22:04)
--- NOTE | 2025-02-14 22:14 | PD.LDDELS ---
Vacuum Assisted Delivery General Patient Counseled by physician:: Yes Informed consent to patient:: Yes Estimated weight:: 8 lb Cervical dilation:: fully dilated station:: +3 position:: OA Molding:: No Caput:: Yes Vacuum Application Vacuum type:: Mityvac Vacuum application:: flexing median Total vacuum time (min):: 2 Maximum pressure (cm Hg):: 50 Cup Placement Flexion point identified:: Yes Cup approp. for head position:: Yes Maternal tissue excluded:: Yes Vacuum Procedure Number of pulls (contractions):: 2 Number of pop-offs:: 0 Recommended range maintained:: Yes Vacuum reduced between pulls:: Yes Advancement made each pull:: Yes Vacuum successful:: Yes Immediate Evaluation Immediate assessment:: no apparent injury Hand-off care to:: nursery nurse (and Respiratory Therapist) Additional Comments Additional comments: Vacuum delivery for poor maternal effort with prolonged deceleration not responding to intrauterine resuscitation. Data (Holly) Data Hx Section: No : 2 Term: 1 : 0 Livin Abortions: Spontaneous & Theraputic: 0 Delivery Data (Holly) Labor Data Initiation of labor: Induction Induction/Augmentation Agent: Cytotec-PO ROM date: 02/14/25 ROM time: 21:42 Amniotic membrane rupture type: Artificial Amniotic fluid description: Clear Delivery Data EDC: 02/05/25 EDC calculated by:: LMP/early US confirmation Onset of labor date: 02/14/25 Onset of labor time: 16:00 Complete dilation date: 02/14/25 Complete dilation time: 21:10 [place] delivery date: 02/14/25 delivery time: 21:53 Gestational age (weeks): 42 Gestational age (days): 2 Placenta delivery date: 02/14/25 Placenta delivery time: 22:04 Stage 1 total time: Labor - Stage 1 Duration 5 hours and 10 minutes Delivered by: [facility] Delivery nurse: radha adames rn. Neworn nurse: brian krueger rn. Application Manager at delivery: No Support person(s) at delivery: FOB Other staff at delivery: Brian devi rnc. Delivery Method Delivery method: Operative Vaginal Delivery Presentation: Vertex position: OA Anesthesia Type Anesthesia Type: Epidural Placenta Cord blood sent to lab: Yes cord blood collection: Cord Blood Type, Arterial Cord Blood Gas and Venous Cord Blood Gas Episiotomy Episiotomy description: None Lacerations #1: Periurethral: 1st degree Perineal repair Sutures used for repair: 3.0 Chromic EBL Estimated blood loss (ml): 200 Umbilical Cord cord description: 2 Vessels and Nuchal Cord Complications Complications: None Data (Holly) [place] Data 's gender: Male Identification band number: [id number] weight (gms): 7 lb 3.346 oz Weight (pounds): 7 lbs and 3.3 ozs 1 minute: 8 5 minutes: 9
--- NOTE | 2025-02-14 22:17 | PD.LDDS ---
DS: Providers Provider Date of admission: 02/14/25 07:37 Primary care physician: Physician No Primary/Family Admitting Provider: Seferino Lopez MD Attending Provider on Admission: Seferino Lopez MD Attending Provider on DC: Seferino Lopez MD Discharging Provider: Seferino Lopez MD DS: Diagnosis Problem List Completed Was Problem List Reviewed/Reconciled?: Yes Summary/Hosp Course Peripartum Data Delivery Method: Operative Vaginal Delivery Episiotomy Description: None Time Spent with Patient Time attestation: Total time spent providing and/or coordinating discharge services: Exam Vital Signs Temp Pulse Resp BP Pulse Ox O2 Del Method 98.2 F 84 17 121/73 99 Room Air 02/14/25 19:26 02/14/25 22:11 02/14/25 19:26 02/14/25 22:11 02/14/25 21:52 02/14/25 19:26 Discharge Plan Plan Patient Disposition: HOME (Self Care) Patient condition on transfer: Stable Prescriptions/Referrals Prescriptions/Med Rec: New ibuprofen 600 mg tablet 600 mg PO Q6H PRN (Reason: pain) Qty: 30 0RF Continued levothyroxine 200 mcg tablet 200 mcg PO QDAY Patient Comments: TAKE ONE TABLET BY MOUTH EVERY DAY levothyroxine 88 mcg tablet 88 mcg PO DAILY Patient Comments: TAKE ONE TABLET BY MOUTH EVERY MORNING BEFORE MEALS WITH 200 mcg Vitamin 27 mg iron- 800 mcg tablet 1 tab PO DAILY Patient Comments: TAKE ONE TABLET BY MOUTH EVERY DAY VITAMIN Discontinued loperamide-simethicone 2-125 mg tablet 1 tab PO Q2H PRN (Reason: loose stool) Qty: 6 0RF Rx Instructions: do not exceed 4 tabs in 24 hrs aspirin 81 mg tablet,delayed release (DR/EC) 81 mg PO DAILY Patient Comments: TAKE ONE TABLET BY MOUTH EVERY DAY FOR THE HEART ferrous sulfate 325 mg (65 mg iron) tablet 325 mg PO QDAY Patient Comments: Take 1 tablet by mouth twice a day as directed Referrals: No Primary/Family,Physician [Primary Care Provider] Patient/Caregiver Discharge Instructions Discharge Activity: activity as tolerated Other Discharge Activity Instructions:: Follow up office 6 weeks. Print Language: Maori Stand Alone Forms: [facility] Award Info., Patient Portal Info Letter Discharge Order Discharge Orders: Discharge (Routine); Ordered 02/16/25 Ordered By: Seferino Lopez Planned Discharge Date 02/16/25
[2025-02-14 22:48] LABS: Amphetamine/Metham Scrn,Ur OB Negative (Negative); Benzoylecgonine Screen, Ur OB Negative (Negative); Opiate Screen,Urine OB Negative (Negative); THC Screen,Urine OB Negative (Negative)
[2025-02-14] MEDS: ACETAMINOPHEN 325 MG TABLET 650 MG PO (23:14)
[2025-02-15] VITALS (7 sets, daily range): BP systolic 123–131; BP diastolic 75–86; PULSE 65–82; RESP 16–19; TEMP 36.4–37.3; O2SAT 96–98
[2025-02-15] MEDS: LEVOTHYROXINE SODIUM 100 MCG TABLET 200 MCG PO (05:45)
[2025-02-15] MEDS: LEVOTHYROXINE SODIUM 88 MCG TABLET PO (05:46)
[2025-02-15 05:52] LABS: Basophils # (Auto) 0.0 Thou/mm3 (0.0-0.2); Basophils % (Auto) 0 % (0-2.5); Eosinophils # (Auto) 0.0 Thou/mm3 (0.0-0.5); Eosinophils % (Auto) 0 % (0-10); Hematocrit 30.2 % (36.0-46.0); Hemoglobin 10.3 g/dL (12.0-16.0); Immature Granulocytes Auto 0.03 Thou/mm3 (0.00-0.00); Lymphocytes # (Auto) 1.8 Thou/mm3 (1.0-4.8); Lymphocytes % (Auto) 16 % (10-50); Mean Corpuscular HGB Conc 34.1 g/dl (31.0-37.0); Mean Corpuscular Hemoglobin 28.4 pg (25.0-35.0); Mean Corpuscular Volume 83 fL (80-100); Monocytes # (Auto) 0.8 Thou/mm3 (0.0-0.8); Monocytes % (Auto) 7 % (0-12); Neutrophils # (Auto) 8.5 Thou/mm3 (1.8-7.7); Neutrophils % (Auto) 77 % (37-80); Nucleated Red Blood Cell # 0.00 Thou/mm3 (0.00-0.00); Nucleated Red Blood Cell % 0 /100 WBC (0); Platelet Count 174 Thou/mm3 (140-440); RDW Standard Deviation 40.9 fL (36.4-46.3); Red Blood Count 3.63 Miln/mm3 (4.00-5.20); White Blood Count 11.1 Thou/mm3 (3.6-11.0)
--- NOTE | 2025-02-15 06:16 | ESPR_ITS ---
RE: SEPIEDH SAXENA : 2000 DATE OF SERVICE: 02/15/2025 SUBJECTIVE: day #1. The patient denies any problem or complaints. She is voiding. She is ambulating. She is tolerating diet. She is passing flatus. She denies any excessive vaginal bleeding. She denies any dizziness or lightheadedness. She denies any chest pain, palpitation, shortness of breath or lower extremity pain. OBJECTIVE: Vital Signs: Blood pressure is 129/84, heart rate 82, respirations 16, temperature is 98.8 and pulse ox is 96% on room air. Lungs: Clear to auscultation bilaterally. Heart: Regular rate rhythm. Abdomen: Fundus is firm, nontender. Extremities: Nontender. LABORATORY DATA: Hemoglobin pre-delivery is 11.5, post-delivery pending. ASSESSMENT AND PLAN: day #1, status post vacuum-assisted vaginal delivery. Plan is discharge home when baby is cleared. Discharge instructions given. Follow up in the office in 6 weeks. DT: 05:58:01 TT: 06:15:00 Ref: [id number] - TID: [id number]
[2025-02-15] MEDS: ACETAMINOPHEN 325 MG TABLET 650 MG PO ×2 (08:22→15:11)
--- NOTE | 2025-02-15 12:32 | PC.SS ---
REGISTRATION REP and student conducted bedside contact with the patient to address nursing referral indicating patient was late to care at 14 weeks and HX of THC.? REGISTRATION REP and student introduced self and role.? At bedside with patient was FOB, Naman John and patient?s mother, Esther.? Patient confirmed late to care.? Patient explained late to care due to limited OB providers at [facility] and other OB providers. Patient then followed up with Dr. Lopez. ?Patient denies HX of Mental health. Patient reports she had HX of depression as a minor and taking medications, however patient does not suffer from Depression currently. ?Patient reports she has a 6 Yr. old boy at home.? delivered naturally. was asleep at bedside.? Patient reports compliance with OB appointments.? Patient plans to breast-feed the . Patient is aligned with WIC, TANF, and SNAP. Patient denies history of alcohol/drug abuse.? FOB will provide transportation upon discharge.? Patient describes possessing support system consisting of FOB and family. Patient resides at home with her family.? ?REGISTRATION REP and student provided community resources to include [employer] and [employer].? No further intervention required at this time, social media manager will be available to address any further concerns.? REGISTRATION REP updated bedside nurse, Natacha.
--- NOTE | 2025-02-15 16:20 | PD.LDDELS ---
Vacuum Assisted Delivery General Patient Counseled by physician:: Yes Informed consent to patient:: Yes Estimated weight:: 8 lb Cervical dilation:: fully dilated Data (Holly) Data Hx Section: No : 2 Term: 1 : 0 Livin Abortions: Spontaneous & Theraputic: 0 Delivery Data (Holly) Labor Data Initiation of labor: Induction Induction/Augmentation Agent: Cytotec-PO ROM date: 02/14/25 ROM time: 21:42 Amniotic membrane rupture type: Artificial Amniotic fluid description: Clear Delivery Data EDC: 02/05/25 EDC calculated by:: LMP/early US confirmation Onset of labor date: 02/14/25 Onset of labor time: 16:00 Complete dilation date: 02/14/25 Complete dilation time: 21:10 delivery date: 02/14/25 delivery time: 21:53 Gestational age (weeks): 41 Gestational age (days): 2 Placenta delivery date: 02/14/25 Pl[place] delivery time: 22:04 Stage 1 total time: Labor - Stage 1 Duration 5 hours and 10 minutes Delivered by: [facility] Delivery nurse: radha adames rn. [place] nurse: brian krueger rn. Support Merchandiser at delivery: No Support person(s) at delivery: FOB Other staff at delivery: Brian devi rnc. Delivery Method Delivery method: Operative Vaginal Delivery Presentation: Vertex position: OA Anesthesia Type Anesthesia Type: Epidural Placenta Cord blood sent to lab: Yes cord blood collection: Cord Blood Type, Arterial Cord Blood Gas and Venous Cord Blood Gas Episiotomy Episiotomy description: None Lacerations #1: Periurethral: 1st Perineal repair Sutures used for repair: 3.0 Chromic EBL Estimated blood loss (ml): 200 Umbilical Cord cord description: 2 Vessels and Nuchal Cord Complications Complications: None [place] Data (Holly) Data Keyes's gender: Male Identification band number: [id number] weight (gms): 7 lb 3.346 oz Weight (pounds): 7 lbs and 3.3 ozs 1 minute: 8 5 minutes: 9
[2025-02-16] MEDS: ACETAMINOPHEN 325 MG TABLET 650 MG PO (01:51)
[2025-02-16 04:19] VITALS: BP 107/70; PULSE 64; RESP 18; TEMP 36.4; O2SAT 95
--- NOTE | 2025-02-16 07:51 | ESPR_ITS ---
RE: SEPIDEH SAXENA : 2000 DATE OF SERVICE: 02/16/2025 SUBJECTIVE: day #2. Patient denies any problem or complaint. OBJECTIVE: Vital Signs: Stable. She is afebrile. Lungs: Clear to auscultation bilaterally. Heart: Regular rate and rhythm. Abdomen: Fundus is firm. Extremities: Nontender. ASSESSMENT AND PLAN: day #2, status post vacuum-assisted vaginal delivery. Plan is discharge home. Discharge instructions given. Follow up in the office in 6 weeks. DT: 06:48:20 TT: 07:50:00 Ref: [id number] - TID: [id number]
[2025-02-16 08:00] VITALS: BP 113/73; PULSE 76; RESP 16; TEMP 36.6; O2SAT 97
== END 2025-02-16 14:20 | disposition home or self-care (01) | DRG 560 ==
LOC: S4SX 22:08 → S4NX 02-15 00:24
PROVIDERS: Admitting Provider Specialist; Visit Provider Specialist
DX: O48.0 Post-term pregnancy (principal); O69.89X0 Labor and delivery complicated by other cord complications, not applicable or unspecified; O99.284 Endocrine, nutritional and metabolic diseases complicating childbirth; E03.9 Hypothyroidism, unspecified; Z37.0 Single live birth; Z3A.41 41 weeks gestation of pregnancy; O69.81X0 Labor and delivery complicated by cord around neck, without compression, not applicable or unspecified; O71.82 Other specified trauma to perineum and vulva; O76 Abnormality in fetal heart rate and rhythm complicating labor and delivery; Z79.82 Long term (current) use of aspirin; Z79.890 Hormone replacement therapy
CPT/HCPCS: 36415; 59409; 80307; 85025; 86780; 86850; 86900; 86901; 94762; J2590; J2795; J7120; A9270

== ENCOUNTER 2025-03-14 17:07 | Emergency (ER) | payer MEDICAID, SELFPAY ==
[2025-03-14 17:09] VITALS: BP 136/91; PULSE 70; RESP 20; TEMP 36.6; O2SAT 100
[2025-03-14 17:10] VITALS: BMI 34.0
--- NOTE | 2025-03-14 17:15 | XR_ITS ---
Examination: Abdomen sonogram, Limited Date and time of exam: March 14, 2025, 1542 hours INDICATION: Epigastric pain today Technique: Real-time helms scale transabdominal sonographic images of the upper abdomen obtained. Findings: Multiple gallstones Normal gallbladder wall 0.2 cm Common bile duct enlarged 0.7 cm although no definite stones Pancreas obscured by bowel gas Liver 13.3 cm no liver lesions Normal hepatopetal portal venous Patent IVC IMPRESSION: Cholelithiasis, negative for cholecystitis Abnormally enlarged common bile duct, consider MRCP follow-up to exclude common bile duct stones
--- NOTE | 2025-03-14 17:15 | XR_ITS ---
EXAMINATION: AP chest single view TECHNIQUE: Portable sitting AP chest single view Date and time: March 14, 2025, 1754 hours INDICATIONS: Chest pain weakness today. FINDINGS: Normal heart size Lungs are clear. Osseous structures are intact IMPRESSION: No active disease
--- NOTE | 2025-03-14 17:15 | EKG_ITS ---
[facility] Test Date: 2025-03-14 Pat Name: SEPIDEH SAXENA Department: Room: - Gender: Female Phlebotomy Specialist: : 2000 Requested By: Leo Cid Order Number: [id number] Reading MD: Leo Cid Measurements Intervals [place] Rate: 64 P: -8 OR: 168 QRS: 27 QRSD: 98 T: 13 QT: 399 QTc: 413 Interpretive Statements SINUS RHYTHM Compared to ECG 05/06/2019 11:30:31 T-wave abnormality no longer present /store/S0/[id number]
--- NOTE | 2025-03-14 17:16 | PD.EDADULT ---
ED General RME/HPI General Chief complaint: Abdominal Pain Stated complaint: ABD/CHEST PAIN Time Seen by Provider: 03/14/25 17:14 Arrival date/time: 03/14/25 17:07 CC: Chest pain epigastric pain HPI abrupt onset approximately 1 hour ago EMS reports stable vital signs other than mild tachycardia. The patient is a 1 month status post vaginal delivery without any complications has a history of hypothyroidism since 2022 on levothyroxine. Patient denies difficulty breathing shortness of breath patient is tachypneic and very anxious. Related Data Home Medications ?Medication ?Instructions ?Recorded ?Confirmed levothyroxine 200 mcg tablet 200 mcg PO QDAY 10/14/24 02/14/25 levothyroxine 88 mcg tablet 88 mcg PO DAILY 12/28/24 02/14/25 vits no.130-ferrous fum 1 tab PO DAILY 12/28/24 02/14/25 27 mg iron-folic acid 800 mcg tablet ( Vitamin) Previous Rx's ?Medication ?Instructions ?Recorded ibuprofen 600 mg tablet 600 mg PO Q6H PRN pain #30 tabs 02/15/25 Allergies Allergy/AdvReac Type Severity Reaction Status Date / Time No Known Allergies Allergy Verified 02/14/25 19:35 Review of Systems Review of Systems Narrative Review of Systems: GEN: No fever, no chills, no weight loss EYES: No discharge, no visual changes, no pain HEENT: No ear pain, no congestion, no sore throat PULM: No shortness of breath, no cough, no congestion CV: + chest pain, no dyspnea on exertion, no palpitations GI: No nausea, no vomiting, no diarrhea, no pain, no constipation : No frequency, no urgency, no dysuria MUSC/SKEL: No joint pain, no back pain SKIN: No rash PSYCH: No hallucinations, no depression HEME/LYMPH: No easy bleeding or bruising tendencies NEURO: No weakness, no headache Past Medical History Past Medical History NEUROLOGIC: Negative Neurological Disorders or Seizures CARDIAC: Positive Cardiac Disorders and Hypertension (Worsening with ); Negative Congestive Heart Failure RESPIRATORY: Negative Chronic Obstructive Pulmonary Disease (COPD) GASTROINTESTINAL: Positive Gastrointestinal Disorders (Gastroenteritis) and Obesity; Negative Hepatitis GENITOURINARY: Positive Kidney Stones (2020); Negative Genitourinary Disorders or Renal Disease REPRODUCTIVE: Positive Previous Pregnancies (2018) and Syphilis (2021) MUSCULOSKELETAL: Negative Musculoskeletal Disorders ENDOCRINE: Positive Endocrine Disorders, Hyperthyroidism (2019 with ), Hypothyroidism (Following thyroidectomy) and Graves' Disease (2019); Negative Diabetes Mellitus Type 1 or Diabetes Mellitus Type 2 HEMATOLOGIC: Negative Blood Disorders PSYCHO/SOCIAL: Positive Depression and Anxiety OTHER HISTORY: Positive Hospitalization (); Negative Autoimmune Disease, Down Syndrome, Developmental Delay, Shingles, Falls, Blood Transfusions, Blood Transfusion Reaction, Anesthesia Reactions, Organ Transplant, Chemotherapy, Radiation Therapy, Hyperbaric Therapy, MRSA, VRSA, Vancomycin-Resistant Enterococci, Human Immunodeficiency Virus (HIV), Chicken Pox, Measles, Mumps, Rubella (Divehi Measles), Pertussis, Clostridium Difficile or Cancer Family History FAMILY HISTORY: Positive Family Psychiatric Problems, Family Respiratory Disorders (Asthma) and Family Cancer (Maternal grandfather bone and lung cancer, maternal aunts breast and colon); Negative Family Cardiac Disorders, Family Gastrointestinal Problems, Family Surgery or Family Anesthesia Reaction Surgical History SURGICAL: Positive Endocrine Surgery and Thyroidectomy (Complete thyroidectomy 2022); Negative Cardiac Surgery, Ear Surgery, Abdominal Surgery, Nephrectomy, Joint Replacement, Neurologic Surgery, Lumpectomy, Hysterectomy, Tubal Ligation, Section or Organ Transplant Social History SMOKING STATUS: Never smoker SUBSTANCE USE: does not use ED Exam Narrative Physical exam: [General: Obese anxious but not in any acute distress Head normocephalic HEENT: Within acceptable limits Neck is supple nontender Chest equal chest rise nontender to palpation Respiratory: Clear to auscultation no wheezes crackles or rubs CV: Rate rhythm is regular no murmurs rubs or clicks Abdomen, epigastric and right upper quadrant tenderness with palpation. Abdomen is distended secondary to body habitus soft no other quadrants are tender. no masses positive bowel sounds all 4 quadrants Back: No CVA tenderness no spinous process tenderness from cervical spine thoracic and lumbar spine Skin: Intact no petechiae rash induration ulceration or crepitus Extremities: Moving all extremity against resistance cap refill less than 2 seconds neurosensory intact Neuro: Awake alert oriented x3 Glascow coma 15 no focal deficits] anxious Course Course Course Narrative: Patient's symptoms have spontaneously resolved without any issues. The patient has cholelithiasis without cholecystitis. There is a CBD dilatation however she has no transaminitis or T. bili elevation. I am comfortable discharging this patient home she is advised if there is a worsening of symptoms return the emergency room for reevaluation. Quality Measures none Orders Category Date Time Status EKG (ED ONLY) *Do not use* NOW Care 03/14/25 17:15 Completed EKG (ED Only) Stat Exams 03/14/25 17:15 Draft US gall bladder Stat Exams 03/14/25 17:15 Completed XR chest 1V Stat Exams 03/14/25 17:15 Completed B-Type Natriuretic Peptide Stat Lab 03/14/25 17:41 Completed CBC Stat Lab 03/14/25 17:41 Completed Comprehensive Metabolic Panel Stat Lab 03/14/25 17:41 Completed Drug Screen,Urine Stat Lab 03/14/25 17:15 Ordered LDH (Lactate Dehydrogenase) Stat Lab 03/14/25 17:41 Completed Lipase Stat Lab 03/14/25 17:41 Completed Magnesium Stat Lab 03/14/25 17:41 Completed Partial Thromboplastin Time Stat Lab 03/14/25 17:41 Completed Prothrombin Time with INR Stat Lab 03/14/25 17:41 Completed Troponin I Stat Lab 03/14/25 17:41 Completed Urinalysis, C/S if Indicated Stat Lab 03/14/25 17:15 Ordered Vital Signs Vital signs: Vital Signs Temperature 97.9 F 03/14/25 17:09 Pulse Rate 70 03/14/25 17:09 Respiratory Rate 20 03/14/25 17:09 Blood Pressure 136/91 H 03/14/25 17:09 Pulse Oximetry (%) 100 03/14/25 17:09 Oxygen Delivery Method Room Air 03/14/25 17:09 Discharge Plan Plan Patient Disposition: HOME (Self Care) Patient condition on transfer: Stable Prescriptions/Referrals Prescriptions/Med Rec: No Action levothyroxine 200 mcg tablet 200 mcg PO QDAY Patient Comments: TAKE ONE TABLET BY MOUTH EVERY DAY levothyroxine 88 mcg tablet 88 mcg PO DAILY Patient Comments: TAKE ONE TABLET BY MOUTH EVERY MORNING BEFORE MEALS WITH 200 mcg Vitamin 27 mg iron- 800 mcg tablet 1 tab PO DAILY Patient Comments: TAKE ONE TABLET BY MOUTH EVERY DAY VITAMIN ibuprofen 600 mg tablet 600 mg PO Q6H PRN (Reason: pain) Qty: 30 0RF Referrals: Robert Leo MD [Primary Care Provider, Family Practice] - In 1 week Problem List Clinical Impression: Chest pain, Abdominal pain, Gallstones Patient/Caregiver Discharge Instructions Education Materials: Treating Gallstones, ED Chest Pain, Noncardiac Additional Instructions: If your symptoms get worse or recur please return to the emergency room for reevaluation otherwise follow-up with your primary care doctor. Print Language: Bengali Stand Alone Forms: [employer] Award Info., Work/School Release, Patient Portal Info Letter PA/BARRERA Supervising Physician ROSANNE/BARRERA Supervising Physician: Leo Summers ENP MDM Clinical Information Provided by: patient and EMS Medical Records reviewed [facility] and EMS Meds/Rx considered, not ordered None Labs/Rad/Tests considered, not ordered None Chronic Illness/Social Conditions Explain: 1 month EKG Interpretation EKG #1: EKG Interpretation: EKG performed at 1910 shows a ventricular rate of 64 MD interval 160 QRS of 98 QTc of 409 this is normal sinus rhythm Labs Labs: interpreted by nd Lab(s) Interpretation(s): CBC shows no acute leukocytosis anemia thrombocytopenia Coags within except limits CMP shows no excess electrolyte melena renal impairment other than a glucose of 151. T. bili of 0.2 no other significant transaminitis. Troponin is undetectable BNP is negative. Imaging Imaging interpretation: interpreted by me Imaging Interpretation(s): Ultrasound showed the patient has a gallbladder with stones but no cholecystitis. Chest x-ray shows no active disease. Diagnosis Differential Diagnosis ED Complaint MDM: Cholelithiasis choledocholithiasis cholecystitis
[2025-03-14 17:18] VITALS: PULSE 86; RESP 20; O2SAT 100
[2025-03-14 17:54] LABS: Basophils # (Auto) 0.0 Thou/mm3 (0.0-0.2); Basophils % (Auto) 0 % (0-2.5); Eosinophils # (Auto) 0.1 Thou/mm3 (0.0-0.5); Eosinophils % (Auto) 2 % (0-10); Hematocrit 37.4 % (36.0-46.0); Hemoglobin 12.5 g/dL (12.0-16.0); Immature Granulocytes Auto 0.01 Thou/mm3 (0.00-0.00); Lymphocytes # (Auto) 1.8 Thou/mm3 (1.0-4.8); Lymphocytes % (Auto) 26 % (10-50); Mean Corpuscular HGB Conc 33.4 g/dl (31.0-37.0); Mean Corpuscular Hemoglobin 28.2 pg (25.0-35.0); Mean Corpuscular Volume 84 fL (80-100); Monocytes # (Auto) 0.4 Thou/mm3 (0.0-0.8); Monocytes % (Auto) 6 % (0-12); Neutrophils # (Auto) 4.6 Thou/mm3 (1.8-7.7); Neutrophils % (Auto) 67 % (37-80); Nucleated Red Blood Cell # 0.00 Thou/mm3 (0.00-0.00); Nucleated Red Blood Cell % 0 /100 WBC (0); Platelet Count 257 Thou/mm3 (140-440); RDW Standard Deviation 39.3 fL (36.4-46.3); Red Blood Count 4.44 Miln/mm3 (4.00-5.20); White Blood Count 6.9 Thou/mm3 (3.6-11.0)
[2025-03-14 18:12] LABS: INR 1.0 (0.9-1.3); Partial Thromboplastin Time 24.5 Seconds (22.0-36.0); Prothrombin Time 10.3 Seconds (9.0-12.2)
[2025-03-14 18:14] LABS: B-Type Natriuretic Peptide < 20 pg/mL (0-100)
[2025-03-14 18:15] LABS: Alanine Aminotransferase 25 U/L (10-49); Albumin, Serum 4.2 gm/dL (3.5-5.0); Albumin/Globulin Ratio 1.5 (1.2-2.2); Alkaline Phosphatase 86 U/L (46-116); Anion Gap 10 (7-16); Aspartate Amino Transferase 38 U/L (0-34); BUN/Creatinine Ratio 11 Ratio (12-20); Bilirubin,Total 0.2 mg/dL (0.3-1.2); Blood Urea Nitrogen 9 mg/dL (9-23); Calcium 9.2 mg/dL (8.3-10.6); Calcium (Corrected) 9.2 mg/dL (8.5-10.1); Carbon Dioxide 24.8 mMol/L (20.0-31.0); Chloride 106 mMol/L (98-107); Creatinine (Component) 0.8 mg/dL (0.6-1.3); Estimated Creatinine Clearance 116.7 mL/min (>60); Globulin 2.8 gm/dL (2.3-3.5); Glucose 151 mg/dL (74-106); LDH (Lactate Dehydrogenase) 221 U/L (120-246); Lipase 48 U/L (12-53); Magnesium 1.6 mg/dL (1.6-2.6); Osmolality,Calculated 282 (275-295); Potassium 3.8 mMol/L (3.4-5.1); Sodium 141 mMol/L (136-145); Total Protein 7.0 gm/dL (5.7-8.2); Troponin I < 0.002 ng/mL (0.0-0.045); eGFR > 60 See Note
[2025-03-14 18:44] VITALS: BP 118/71; PULSE 73; RESP 16; TEMP 36.5; O2SAT 98
== END 2025-03-14 19:47 | disposition home or self-care (01) ==
PROVIDERS: Registered Nurse General Practice; Emergency Provider Emergency Medicine; PCP Family Medicine
DX: K80.20 Calculus of gallbladder without cholecystitis without obstruction (principal); R07.9 Chest pain, unspecified; R53.1 Weakness
CPT/HCPCS: 36415; 71045; 76705; 80053; 80307; 81001; 83615; 83690; 83735; 83880; 84484; 85025; 85610; 85730; 93005; 99283